=== PATIENT | female | born 1935 | race Caucasian/White ===

== ENCOUNTER 2025-05-11 15:36 | Inpatient (IN) | payer MEDICARE, OTHER ==
[~2025-05-11] VITALS: Ht 167.6 cm; Wt 72.6 kg
[2025-05-11] MEDS: IV NS 0.9% 1,000 ML BAG IV ONE (16:21)
[2025-05-11 16:27] LABS: PLATELET COUNT (AUTO) 279 K/uL (150-450); RED BLOOD CELL COUNT(AUTO) 4.28 MIL/uL (4.0-5.2); RED CELL DISTRIBUTION WIDTH 13.1 % (11.5-15.0); WHITE BLOOD COUNT (AUTO) 20.4 K/uL (4.3-11.0)
[2025-05-11 16:45] LABS: INR 1.15 (0.91-1.10)
[2025-05-11 16:46] LABS: CALCIUM, SERUM 10.0 mg/dL (8.5-10.1); CREATININE 1.0 mg/dL (0.6-1.3); SODIUM SERUM 140 mmol/L (136-145); UREA NITROGEN, BLOOD 32 mg/dL (7-18)
[2025-05-11 16:49] LABS: ASPARTATE AMINOTRANSFERASE 44 U/L (15-37); TOTAL PROTEIN, SERUM 7.5 g/dL (6.4-8.2)
[2025-05-11 16:59] LABS: LACTIC ACID 2.7 mmol/L (0.4-2.0)
[2025-05-11] MEDS: PIPERACILLIN /TAZOBACTAM 3.375 G in IV D5W 50 ML IV ONE (17:05)
[2025-05-11 17:40] LABS: APPEARANCE,URINE CLEAR (CLEAR); BLOOD, URINE Negative Ery/uL (NEGATIVE); LEUKOCYTE ESTERASE ,URINE Negative (NEGATIVE); UGLUCOSE Negative (NEGATIVE)
[2025-05-11 17:41] LABS: ADD URINE CULTURE NO; NITRITE, URINE NEGATIVE (NEGATIVE)
[2025-05-11] MEDS ORDERED: GUAI100S69 PO (18:06)
[2025-05-11] MEDS ORDERED: MULT-213 PO (18:06)
[2025-05-11] MEDS ORDERED: FURO-145 PO (18:06)
[2025-05-11] MEDS ORDERED: CHOL100043 PO (18:06)
[2025-05-11] MEDS ORDERED: FAMO20TA80 PO (18:06)
[2025-05-11] MEDS ORDERED: CLOP75TA15 PO (18:06)
[2025-05-11] MEDS ORDERED: DONE10TA11 PO (18:06)
[2025-05-11] MEDS ORDERED: ATOR10TA PO (18:06)
[2025-05-11] MEDS ORDERED: ONDANSETRON HCL/PF 4 MG/2 ML VIAL IVP PRN (18:30)
[2025-05-11] MEDS ORDERED: Z GUARD REMEDY 4 OZ OINT TP PRN (18:30)
[2025-05-11 20:00] VITALS: BP 121/83; TEMP 98.8; O2SAT 94
[2025-05-11] MEDS ORDERED: CEFTRIAXONE 1GM BAG (ER ONLY) 0 ML IV ONE (20:15)
[2025-05-11] MEDS: CEFTRIAXONE 1 G in IV D5W 50 ML IV SCH (20:17)
[2025-05-11] MEDS: ENOXAPARIN SODIUM 40 MG/0.4 ML DISP.SYRIN SQ SCH (20:19)
[2025-05-11] MEDS: ATORVASTATIN 10 MG TABLET PO SCH (21:13)
[2025-05-11] MEDS: DONEPEZIL 5 MG TABLET PO SCH (21:13)
[2025-05-12] VITALS: BP 140/84; TEMP 98.1; O2SAT 96
[2025-05-12 04:00] VITALS: BP 138/98; TEMP 98.1; O2SAT 94
[2025-05-12 07:46] LABS: PLATELET COUNT (AUTO) 263 K/uL (150-450); RED BLOOD CELL COUNT(AUTO) 4.05 MIL/uL (4.0-5.2); RED CELL DISTRIBUTION WIDTH 13.1 % (11.5-15.0); WHITE BLOOD COUNT (AUTO) 17.0 K/uL (4.3-11.0)
[2025-05-12 08:00] VITALS: BP 151/85; TEMP 97.7; O2SAT 96
[2025-05-12 08:00] LABS: ASPARTATE AMINOTRANSFERASE 84.0 U/L (15-37); CALCIUM, SERUM 9.0 mg/dL (8.5-10.1); CREATININE 0.7 mg/dL (0.6-1.3); PHOSPHORUS 2.7 mg/dL (2.5-4.9); SODIUM SERUM 142.0 mmol/L (136-145); TOTAL PROTEIN, SERUM 6.7 g/dL (6.4-8.2); UREA NITROGEN, BLOOD 24.0 mg/dL (7-18)
[2025-05-12 08:04] LABS: LDL 60.0 mg/dL (0-99)
[2025-05-12] MEDS: FAMOTIDINE (20 MG) 20 MG TABLET PO SCH (08:56)
[2025-05-12] MEDS: CLOPIDOGREL BISULFATE 75 MG TABLET PO SCH (08:56)
[2025-05-12] MEDS: PANTOPRAZOLE 40 MG TABLET.DR PO SCH (08:56)
[2025-05-12] MEDS: IV PREMIX D5 1/2NS + KCL 1,000 ML IV SCH (10:21)
[2025-05-12] MEDS: POTASSIUM CHLORIDE 20 MEQ TAB.PRT.SR PO SCH (11:55)
[2025-05-12 16:00] VITALS: BP 108/59; TEMP 98.2; O2SAT 96
[2025-05-12] MEDS: OLANZAPINE 10 MG VIAL IM ONE (16:25)
[2025-05-12 20:00] VITALS: BP 138/80; TEMP 98.8; O2SAT 94
[2025-05-13 04:00] VITALS: BP 131/78; TEMP 98.2; O2SAT 94
[2025-05-13 07:08] LABS: PLATELET COUNT (AUTO) 272 K/uL (150-450); RED BLOOD CELL COUNT(AUTO) 3.86 MIL/uL (4.0-5.2); RED CELL DISTRIBUTION WIDTH 13.1 % (11.5-15.0); WHITE BLOOD COUNT (AUTO) 15.0 K/uL (4.3-11.0)
[2025-05-13 07:24] LABS: ASPARTATE AMINOTRANSFERASE 48.0 U/L (15-37); CALCIUM, SERUM 8.7 mg/dL (8.5-10.1); CREATININE 0.7 mg/dL (0.6-1.3); SODIUM SERUM 140.0 mmol/L (136-145); TOTAL PROTEIN, SERUM 6.3 g/dL (6.4-8.2); UREA NITROGEN, BLOOD 13.0 mg/dL (7-18)
[2025-05-13 07:28] LABS: PHOSPHORUS 2.7 mg/dL (2.5-4.9)
[2025-05-13 08:18] VITALS: BP 134/94; TEMP 98.5; O2SAT 98
[2025-05-13 11:21] LABS: LYMPHOCYTES % (MANUAL) 8 % (16-48); MONOCYTES % (MANUAL) 11 % (0-11.0); NEUTROPHILS % (MANUAL) 81 (42-76); PLATELET ESTIMATE ADEQUATE
[2025-05-13 12:11] VITALS: BP 141/75; TEMP 98.3; O2SAT 98
[2025-05-13 16:43] VITALS: BP 143/74; TEMP 98; O2SAT 96
[2025-05-13 20:00] VITALS: BP 140/69; TEMP 99.3; O2SAT 96
[2025-05-13] MEDS: ACETAMINOPHEN 325 MG TABLET PO PRN (23:55)
[2025-05-14] VITALS: BP 143/69; TEMP 98.5; O2SAT 96
[2025-05-14 04:00] VITALS: BP 108/62; TEMP 97.9; O2SAT 96
[2025-05-14 07:11] LABS: PLATELET COUNT (AUTO) 227 K/uL (150-450); RED BLOOD CELL COUNT(AUTO) 3.60 MIL/uL (4.0-5.2); RED CELL DISTRIBUTION WIDTH 13.3 % (11.5-15.0); WHITE BLOOD COUNT (AUTO) 12.4 K/uL (4.3-11.0)
[2025-05-14 08:00] VITALS: BP 108/51; TEMP 97.5; O2SAT 95; O2SAT 96
[2025-05-14 08:11] LABS: CALCIUM, SERUM 9.0 mg/dL (8.5-10.1); CREATININE 0.8 mg/dL (0.6-1.3); SODIUM SERUM 140.0 mmol/L (136-145); UREA NITROGEN, BLOOD 12.0 mg/dL (7-18)
[2025-05-15 04:00] VITALS: BP 143/79; TEMP 98.2; O2SAT 96
[2025-05-15 06:50] LABS: PLATELET COUNT (AUTO) 278 K/uL (150-450); RED BLOOD CELL COUNT(AUTO) 4.06 MIL/uL (4.0-5.2); RED CELL DISTRIBUTION WIDTH 13.2 % (11.5-15.0); WHITE BLOOD COUNT (AUTO) 14.9 K/uL (4.3-11.0)
[2025-05-15] MEDS: CLOTRIMAZOLE/BETAMETASONE DIPROPIONATE 15 GM TUBE TP SCH (08:44)
[2025-05-15] MEDS ORDERED: LEVO500T90 PO (08:51)
[2025-05-15 09:43] LABS: EOSINOPHILS % (MANUAL) 2 % (0-4); LYMPHOCYTES % (MANUAL) 11 % (16-48); MONOCYTES % (MANUAL) 4 % (0-11.0); NEUTROPHILS % (MANUAL) 83 (42-76)
[2025-05-15 09:44] LABS: PLATELET ESTIMATE ADEQUATE
[2025-05-15] MEDS ORDERED: LORAZEPAM 0.5 MG TABLET PO PRN (10:00)
[2025-05-15] MEDS ORDERED: OLANZAPINE ZYDIS 5 MG TAB.RAPDIS PO PRN (10:00)
== END 2025-05-15 16:34 | DRG 291 ==
LOC: ER 15:51 → TELE-TD 18:01 → TELE1 20:35 → MEDSG1 05-12 10:19
PROVIDERS: ADMIT Nurse Practitioner Acute Care; ATTEND Internal Medicine
DX: I50.33 Acute on chronic diastolic (congestive) heart failure (principal); A41.9 Sepsis, unspecified organism; J15.9 Unspecified bacterial pneumonia; K83.1 Obstruction of bile duct; J15.69 Pneumonia due to other Gram-negative bacteria; D68.59 Other primary thrombophilia; F02.818 Dementia in other diseases classified elsewhere, unspecified severity, with other behavioral disturbance; N17.9 Acute kidney failure, unspecified; F02.84 Dementia in other diseases classified elsewhere, unspecified severity, with anxiety; E87.20 Acidosis, unspecified; J90 Pleural effusion, not elsewhere classified; I48.91 Unspecified atrial fibrillation; K21.9 Gastro-esophageal reflux disease without esophagitis; I25.10 Atherosclerotic heart disease of native coronary artery without angina pectoris; Z66 Do not resuscitate; Z20.822 Contact with and (suspected) exposure to COVID-19; E78.5 Hyperlipidemia, unspecified; G89.4 Chronic pain syndrome; G30.9 Alzheimer's disease, unspecified; M19.90 Unspecified osteoarthritis, unspecified site; L30.8 Other specified dermatitis; Z86.73 Personal history of transient ischemic attack (TIA), and cerebral infarction without residual deficits; Z79.02 Long term (current) use of antithrombotics/antiplatelets; Z79.899 Other long term (current) drug therapy; Y95 Nosocomial condition; Z96.643 Presence of artificial hip joint, bilateral; I48.0 Paroxysmal atrial fibrillation; K82.8 Other specified diseases of gallbladder; F32.A Depression, unspecified; F29 Unspecified psychosis not due to a substance or known physiological condition; F41.9 Anxiety disorder, unspecified; E88.09 Other disorders of plasma-protein metabolism, not elsewhere classified; E80.6 Other disorders of bilirubin metabolism; L98.9 Disorder of the skin and subcutaneous tissue, unspecified
CPT/HCPCS: 36415; 71045-TC; 80048-TC; 80053-TC; 80061-TC; 80076-TC; 81001; 83605-TC; 83735-TC; 83880; 84100-TC; 84484-TC; 85025-TC; 85027-TC; 85730-TC; 87040-TC; 87081-TC; 87086-TC; 92526; 92611; 93307-TC; A4223; G0378; J0696; J1650; J2543; J3490; J7030; J7060